=== PATIENT | female | born 1995 | race Caucasian/White ===

== ENCOUNTER 2021-10-24 10:02 | Outpatient (CLI) | payer BC | END 2021-10-24 10:03 | disposition home or self-care (01) | LOC: BICRAD 10:02 | PROVIDERS: ATTEND Internal Medicine | DX: R05.3 Chronic cough (principal); Z86.16 Personal history of COVID-19 | CPT/HCPCS: 71046 ==

== ENCOUNTER 2023-09-05 12:08 | Outpatient (CLI) | payer OTHER | END 2023-09-05 12:09 | disposition home or self-care (01) | LOC: SCSRAD 12:08 | PROVIDERS: ATTEND Internal Medicine | DX: R05.3 Chronic cough (principal) | CPT/HCPCS: 71046 ==

== ENCOUNTER 2023-09-16 11:05 | Outpatient (CLI) | payer OTHER | END 2023-09-16 11:06 | disposition home or self-care (01) | LOC: SCSRAD 11:05 | PROVIDERS: ATTEND Nurse Practitioner Family | DX: S99.921A Unspecified injury of right foot, initial encounter (principal) ==

== ENCOUNTER 2023-11-26 08:57 | Outpatient (CLI) | payer OTHER | END 2023-11-26 08:58 | disposition home or self-care (01) | LOC: SCSCT 08:57 | PROVIDERS: ATTEND Internal Medicine | DX: R05.3 Chronic cough (principal); K76.9 Liver disease, unspecified | CPT/HCPCS: 71250 ==